=== PATIENT | female | born 1990 | race African-American/Black ===

== ENCOUNTER 2018-02-14 11:05 | Emergency (ER) | payer OTHER ==
[~2018-02-14] VITALS: Ht 172.7 cm; Wt 110.0 kg
[~2018-02-14 11:05] MED LIST: ALBU8I INH
[2018-02-14 11:09] VITALS: BP 125/76; PULSE 84; RESP 23; TEMP 98.1; O2SAT 97
--- NOTE | 2018-02-14 11:22 | PD ---
HPI Chief Complaint: Respiratory Symptoms Time Seen by Provider: 11:13 Travel History International Travel<30 days: No Contact w/Intl Traveler<30days: No Traveled to known affect area: No History of Present Illness HPI Patient 27-year-old female presents emergency department for evaluation of shortness of breath. Has a history of asthma. She has been taking her son's nebulizer at home with minimal relief. Patient states symptoms are moderate, for the past few days, gradually worsening. No chest pain no abdominal pain. Patient has secondary complaint of some vaginal spotting, she states she has been having a period about every 2 weeks this month. She denies any abdominal pain. She thinks she might be . PFSH Past Medical History Hx Anticoagulant Therapy: No Asthma: Yes Chemotherapy: No Chest Pain: Yes Cerebrovascular Accident: No Diabetes: No Diminished Hearing: No Headaches: Yes Respiratory: Yes (ASTHMA) ?: Unknown LMP: 12/2017 : 2 Para: 1 Past Surgical History Hysterectomy: No Family History Family Hypercholesterolemia: Yes Social History Alcohol Use: Yes (OCCASIONALLY) Tobacco Use: No (QUIT SMOKING) Substance Use: No Allergies-Medications (Allergen,Severity, Reaction): Coded Allergies: No Known Allergies (Unverified Adverse Reaction, Unknown, 02/14/18) Reported Meds & Prescriptions Reported Meds & Active Scripts Active Albuterol Neb (Albuterol Sulfate) 2.5 Mg/3 Ml Neb 2.5 Mg NEB Q4HR NEB While awake Proair Hfa 8.5 GM Inh (Albuterol Sulfate) 90 Mcg/Act Aer 1 Puff INH Q4H PRN 108 mcg/actuation Prednisone 20 Mg Tab 60 Mg PO DAILY 5 Days Ventolin Hfa (Albuterol Sulfate) 8 Gm Aero 2 Puff INH Q6 PRN * SHAKE WELL BEFORE USE * ALTERNATIVE IS OK Review of Systems Except as stated in HPI: all other systems reviewed are Neg Physical Exam Narrative GENERAL: Well-nourished, well-developed patient. Morbidly obese SKIN: Focused skin assessment warm/dry. HEAD: Normocephalic. EYES: No scleral icterus. No injection or drainage. NECK: Supple, trachea midline. No JVD or lymphadenopathy. CARDIOVASCULAR: Regular rate and rhythm without murmurs, gallops, or rubs. RESPIRATORY: Breath sounds equal bilaterally. No accessory muscle use. There is expiratory wheezes but the patient is able to speak in full and complete sentences. GASTROINTESTINAL: Abdomen soft, non-tender, nondistended. No rebound or percussive tenderness. MUSCULOSKELETAL: No cyanosis, or edema. BACK: Nontender without obvious deformity. No CVA tenderness. Data Data Last Documented VS Vital Signs Date Time Temp Pulse Resp B/P (MAP) Pulse Ox O2 Delivery O2 Flow Rate FiO2 02/14/18 11:09 98.1 84 23 125/76 (92) 97 Orders Orders Chest, Pa & Lat (02/14/18 ) Ed Urine Pregnancytest Poc (02/14/18 11:16) Albuterol-Ipratropium Neb (Duoneb Neb) (02/14/18 11:30) Ed Discharge Order (02/14/18 12:49) [facility] Medical Decision Making Medical Screen Exam Complete: Yes Emergency Medical Condition: Yes Differential Diagnosis Asthma exacerbation, , pneumonia peer Narrative Course Patient room to the emergency department symptoms consistent with mild asthma exacerbation, given DuoNeb, she is responded quite well, urine test negative in the emergency department. At this time I do not see indication for further workup, steroids, I will prescribe for her her own nebulizer fluid as she has her son's nebulizer at home. Discussed returning to criteria follow-up with primary care physician. She stable for discharge Diagnosis Primary Impression: Asthma exacerbation Med/Other Pt SpecificInfo: Prescription(s) given Scripts Albuterol Neb (Albuterol Neb) 2.5 Mg/3 Ml Neb 2.5 MG NEB Q4HR NEB for Breathing Treatment, #60 NEBULE 0 Refills While awake Prov: Prasanna Wellington MD 02/14/18 Albuterol 8.5 GM Inh (Proair Hfa 8.5 GM Inh) 90 Mcg/Act Aer 1 PUFF INH Q4H Y for SHORTNESS OF BREATH, #1 INHALER 0 Refills 108 mcg/actuation Prov: Prasanna Wellington MD 02/14/18 Prednisone (Prednisone) 20 Mg Tab 60 MG PO DAILY for 5 Days, #15 TAB 0 Refills Prov: Prasanna Wellington MD 02/14/18 Disposition: 01 DISCHARGE HOME Condition: Stable Prasanna Wellington MD February 14, 2018 11:22
[2018-02-14] MEDS ORDERED: RESP: ALBUTEROL 2.5 MG/IPRATROPIUM 0.5 MG NEB (SCH) NEB ONE (11:30)
--- NOTE | 2018-02-14 11:54 | RADRPT ---
EXAM DATE/TIME: 02/14/2018 11:48 [place] COMPARISON: No previous studies available for comparison. INDICATIONS : Cough and shortness of breath. MEDICAL HISTORY : Asthma SURGICAL HISTORY : None. ENCOUNTER: Initial ACUITY: 2 days PAIN SCORE: 0/10 LOCATION: Bilateral chest FINDINGS: PA and lateral views of the chest demonstrate the lungs to be symmetrically aerated without evidence of mass, infiltrate or effusion. The cardiomediastinal contours are unremarkable. Osseous structure s are intact. CONCLUSION: No acute cardiopulmonary disease. Song Snow MD on February 14, 2018 at 11:52 Board Certified Radiologist. This report was verified electronically.
[2018-02-14] MEDS ORDERED: PRED20 PO (12:47)
[2018-02-14] MEDS ORDERED: ALBU.5I NEB (12:47)
[2018-02-14] MEDS ORDERED: ALBUAER3 INH (12:47)
[2018-02-14] MEDS ORDERED: ALBU0.08 NEB (12:48)
== END 2018-02-14 12:50 | disposition home or self-care (01) ==
LOC: NEPD 11:05
DX: J45.901 Unspecified asthma with (acute) exacerbation (principal); Z87.891 Personal history of nicotine dependence
CPT/HCPCS: 71046; 84703; 94640; 94664; 99283

== ENCOUNTER 2018-03-18 15:03 | Emergency (ER) | payer OTHER ==
[~2018-03-18 15:03] MED LIST changes: +ALBU0.08 NEB; +ALBUAER3 INH; +PRED20 PO
[2018-03-18 15:12] VITALS: BP 132/86; RESP 20; TEMP 98.3; O2SAT 98
--- NOTE | 2018-03-18 16:04 | PD ---
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 States she has had some mild nausea without vomiting. States her breasts have been sore. Denies any nipple discharge. She is sexually active without condoms. Denies any vaginal discharge. Reports a missed menses last month. Last menses January 29. Reports 6-8 hours of mild spotting yesterday. Denies any bleeding today. She is not on vitamins. On further questioning she is concerned about . States adamantly that with her first child urine tests were negative and that a beta hCG was the only way she learned that she was . Denies any chest pain shortness of breath urinary or bowel symptoms. PFSH Past Medical History Hx Anticoagulant Therapy: No Asthma: Yes Chemotherapy: No Chest Pain: Yes Cerebrovascular Accident: No Diabetes: No Diminished Hearing: No Headaches: Yes Respiratory: Yes (ASTHMA) Influenza Vaccination: No ?: Unknown LMP: 4-14-18 : 2 Para: 1 Past Surgical History Hysterectomy: No Family History Family Hypercholesterolemia: Yes Social History Alcohol Use: Yes (OCCASIONALLY) Tobacco Use: No (QUIT SMOKING) Substance Use: No Allergies-Medications (Allergen,Severity, Reaction): Coded Allergies: No Known Allergies (Unverified Adverse Reaction, Unknown, 02/14/18) Reported Meds & Prescriptions Reported Meds & Active Scripts Active Proair Hfa 8.5 GM Inh (Albuterol Sulfate) 90 Mcg/Act Aer 1 Puff INH Q4H PRN 108 mcg/actuation Review of Systems General / Constitutional: Positive: Other (Malaise) Eyes: No: Visual changes HENT: No: Headaches Cardiovascular: No: Chest Pain or Discomfort Respiratory: No: Shortness of Breath Gastrointestinal: No: Abdominal Pain Genitourinary: No: Dysuria Musculoskeletal: No: Pain Skin: No Rash Neurologic: No: Weakness Psychiatric: No: Depression Endocrine: No: Polydipsia Hematologic/Lymphatic: No: Easy Bruising Physical Exam Narrative GENERAL: Well-nourished, well-developed patient. SKIN: Focused skin assessment warm/dry. HEAD: Normocephalic. EYES: No scleral icterus. No injection or drainage. NECK: Supple, trachea midline. No JVD or lymphadenopathy. CARDIOVASCULAR: Regular rate and rhythm without murmurs, gallops, or rubs. RESPIRATORY: Breath sounds equal bilaterally. No accessory muscle use. GASTROINTESTINAL: Abdomen soft, non-tender, nondistended. MUSCULOSKELETAL: No cyanosis, or edema. BACK: Nontender without obvious deformity. No CVA tenderness. Data Data Last Documented VS Vital Signs Date Time Temp Pulse Resp B/P (MAP) Pulse Ox O2 Delivery O2 Flow Rate FiO2 03/18/18 15:12 98.3 20 132/86 (101) 98 Orders Orders Urinalysis - C+S If Indicated (03/18/18 15:11) Ed Urine Pregnancytest Poc (03/18/18 15:11) Beta Hcg (Quant/Titer) (03/18/18 15:39) Labs Laboratory Tests Test 03/18/18 15:50 03/18/18 15:55 Human Chorionic Gonadotropin, Quant LESS THAN 1 MIU/ML Urine Collection Type CLEAN CATCH Urine Color YELLOW Urine Turbidity CLEAR Urine pH 6.0 Urine Specific [place] GREATER/EQUAL 1.030 Urine Protein NEG mg/dL Urine Glucose (UA) NEG mg/dL Urine Ketones TRACE mg/dL Urine Occult Blood TRACE Urine Nitrite NEG Urine Bilirubin NEG Urine Urobilinogen 0.2 MG/DL Urine Leukocyte Esterase NEG Urine RBC 4-9 /hpf Urine Squamous Epithelial Cells 6-8 /hpf Urine Amorphous Sediment MOD Microscopic Urinalysis Comment CULT NOT INDICATED Urine Collection Time 1555 MDM Medical Decision Making Medical Screen Exam Complete: Yes Emergency Medical Condition: Yes Differential Diagnosis , UTI, malaise, malingering Narrative Course Assessment plan discussed the patient at bedside. ED urine test was negative. Beta hCG negative. Diagnosis Primary Impression: Dysmenorrhea Patient Instructions: General Instructions Additional Instructions: Encouraged rest fluids and Motrin, follow-up with PCP, return to the emergency room with any onset of new symptoms. Med/Other Pt SpecificInfo: No Meds Exist/No RX given Disposition: 01 DISCHARGE HOME Condition: Good Roland Devlin MD Mar 18, 2018 16:04
[2018-03-18 16:12] LABS: BILIRUBIN, URINE NEG (NEG); BLOOD, URINE TRACE (NEG); GLUCOSE,URINE NEG (NEG); KETONE, URINE TRACE mg/dL (NEG); NITRITE,URINE NEG (NEG); URINE COLOR YELLOW (YELLW/STRAW); URINE LEUKOCYTE ESTERASE NEG (NEG)
[2018-03-18 16:17] LABS: AMORPHOUS SEDIMENT, URINE MOD
== END 2018-03-18 16:53 | disposition home or self-care (01) ==
LOC: PHED 15:03
DX: N94.6 Dysmenorrhea, unspecified (principal); J45.909 Unspecified asthma, uncomplicated; Z87.891 Personal history of nicotine dependence
CPT/HCPCS: 81001; 84702; 84703; 99283

== ENCOUNTER 2018-04-08 13:23 | Emergency (ER) | payer OTHER ==
[~2018-04-08] VITALS: Ht 172.7 cm; Wt 155.8 kg
[~2018-04-08 13:23] MED LIST changes: -ALBU0.08 NEB; -ALBU8I INH; -PRED20 PO
[2018-04-08 13:26] VITALS: BP 119/68; PULSE 90; RESP 14; TEMP 97.7; O2SAT 98
--- NOTE | 2018-04-08 14:04 | PD ---
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 Presented approximately 2-3 weeks ago convinced that she was despite intermittent vaginal bleeding and negative urinary test. Beta hCG at that time was negative. Patient presents again today with complaints of light spotting yesterday that has become heavier today with abdominal cramping. She is not on any oral control. Again she is convinced that she is since she had similar symptoms when she was with her son. Cramping is sharp and intermittent. Pain 7-8 out of 10. Onset yesterday. Denies any new chest pain shortness of breath urinary or bowel symptoms. Denies any blood per urine or bowels. She has not taken any nonsteroidal anti-inflammatories to alleviate her pain. Denies any alleviating or aggravating factors. Denies any nausea vomiting diarrhea or fever. She is passive-aggressive and insistent that some intervention be done. PFSH Past Medical History Hx Anticoagulant Therapy: No Asthma: Yes Chemotherapy: No Chest Pain: Yes Cerebrovascular Accident: No Diabetes: No Diminished Hearing: No Headaches: Yes Respiratory: Yes (Asthma ) ?: Unknown LMP: Yesterday/last two months ago : 2 Para: 1 Past Surgical History Hysterectomy: No Family History Family Hypercholesterolemia: Yes Social History Alcohol Use: Yes (OCCASIONALLY) Tobacco Use: No (QUIT SMOKING) Substance Use: No Allergies-Medications (Allergen,Severity, Reaction): Coded Allergies: No Known Allergies (Unverified Adverse Reaction, Unknown, 04/08/18) Reported Meds & Prescriptions Reported Meds & Active Scripts Active Hydrocodone-Acetaminophen 5-325 mg Tab 1 Tab PO Q6H PRN Proair Hfa 8.5 GM Inh (Albuterol Sulfate) 90 Mcg/Act Aer 1 Puff INH Q4H PRN 108 mcg/actuation Reported Albuterol Neb (Albuterol Sulfate) 0.63 Mg/3 Ml Neb 0.63 Mg NEB Q4HR NEB PRN Review of Systems General / Constitutional: No: Fever Eyes: No: Visual changes HENT: No: Headaches Cardiovascular: No: Chest Pain or Discomfort Respiratory: No: Shortness of Breath Genitourinary: Positive: Pelvic Pain, Dysmenorrhea, Vaginal Bleeding, No: Dysuria Musculoskeletal: No: Pain Skin: No Rash Neurologic: No: Weakness Psychiatric: No: Depression Endocrine: No: Polydipsia Hematologic/Lymphatic: No: Easy Bruising Physical Exam Narrative GENERAL: Well-nourished, well-developed patient. SKIN: Focused skin assessment warm/dry. HEAD: Normocephalic. EYES: No scleral icterus. No injection or drainage. NECK: Supple, trachea midline. No JVD or lymphadenopathy. CARDIOVASCULAR: Regular rate and rhythm without murmurs, gallops, or rubs. RESPIRATORY: Breath sounds equal bilaterally. No accessory muscle use. GASTROINTESTINAL: Abdomen soft, normal bowel sounds, non-tender, nondistended. MUSCULOSKELETAL: No cyanosis, or edema. BACK: Nontender without obvious deformity. No CVA tenderness. Data Data Last Documented VS Vital Signs Date Time Temp Pulse Resp B/P (MAP) Pulse Ox O2 Delivery O2 Flow Rate FiO2 04/08/18 13:26 97.7 90 14 119/68 (85) 98 Orders Orders Beta Hcg (Quant/Titer) (04/08/18 13:56) Urinalysis - C+S If Indicated (04/08/18 13:58) Labs Laboratory Tests Test 04/08/18 14:10 04/08/18 14:55 Human Chorionic Gonadotropin, Quant LESS THAN 1 MIU/ML Urine Collection Type CLEAN CATCH Urine Color YELLOW Urine Turbidity SL CLOUDY Urine pH 6.0 Urine Specific [place] GREATER/EQUAL 1.030 Urine Protein NEG mg/dL Urine Glucose (UA) NEG mg/dL Urine Ketones TRACE mg/dL Urine Occult Blood LARGE Urine Nitrite NEG Urine Bilirubin NEG Urine Urobilinogen 1.0 MG/DL Urine Leukocyte Esterase NEG Urine RBC 25-49 /hpf Urine WBC 0-2 /hpf Urine Squamous Epithelial Cells 0-5 /hpf Urine Amorphous Sediment FEW Microscopic Urinalysis Comment CULT NOT INDICATED Urine Collection Time 1455 MDM Medical Decision Making Medical Screen Exam Complete: Yes Emergency Medical Condition: Yes Differential Diagnosis Menses, , ovarian cysts, dysmenorrhea Narrative Course Assessment plan discussed with patient at bedside. Urinalysis within normal limits, beta hCG negative. Diagnosis Primary Impression: Dysmenorrhea Patient Instructions: General Instructions Additional Instructions: Pain medication as needed, encourage nonsteroidal anti-inflammatories. Encouraged follow-up with PCP/DIGITAL MEDIA REPRESENTATIVE. Return to the emergency room with any onset of new symptoms. Med/Other Pt SpecificInfo: Prescription(s) given Scripts Hydrocodone-Acetaminophen (Hydrocodone-Acetaminophen) 5-325 mg Tab 1 TAB PO Q6H Y for PAIN, #10 TAB 0 Refills Prov: Roland Devlin MD 04/08/18 Disposition: 01 DISCHARGE HOME Condition: Good Roland Devlin MD Apr 08, 2018 14:04
[2018-04-08] MEDS ORDERED: ALBU0.63 NEB (14:15)
[2018-04-08 15:04] LABS: BILIRUBIN, URINE NEG (NEG); BLOOD, URINE LARGE (NEG); GLUCOSE,URINE NEG (NEG); KETONE, URINE TRACE mg/dL (NEG); NITRITE,URINE NEG (NEG); URINE COLOR YELLOW (YELLW/STRAW); URINE LEUKOCYTE ESTERASE NEG (NEG)
[2018-04-08 15:13] LABS: AMORPHOUS SEDIMENT, URINE FEW; SQUAMOUS EPITHELIAL CELL URINE 0-5 /hpf (0-5); WBC, URINE 0-2 /hpf (0-5)
[2018-04-08] MEDS ORDERED: HYDR-3516 PO (15:18)
== END 2018-04-08 15:35 | disposition home or self-care (01) ==
LOC: PHED 13:23
DX: N94.6 Dysmenorrhea, unspecified (principal); R10.9 Unspecified abdominal pain; J45.909 Unspecified asthma, uncomplicated
CPT/HCPCS: 81001; 84702; 99283